=== PATIENT | female | born 1980 | race African-American/Black ===

== ENCOUNTER 2017-01-20 09:03 | Emergency (ER) | payer MEDICAID, OTHER ==
[~2017-01-20] VITALS: Ht 162.6 cm; Wt 80.0 kg
[~2017-01-20 09:03] MED LIST: ALBU1AER INH; GLUCTAB PO; IBUP800T23 PO; LANTUSP SQ; METH500T3 PO; PRAV40TA2 PO; PRED20 PO; Z.0.NO CURRENT MEDS
[2017-01-20 09:08] VITALS: BP 146/86; PULSE 102; RESP 16; TEMP 98.7; O2SAT 98
[2017-01-20] MEDS ORDERED: SODIUM CHLORIDE 0.9% FLUSH 10 ML FLUSH IVF PRN (09:15)
[2017-01-20] MEDS ORDERED: RESP: ALBUTEROL 2.5 MG/3 ML NEB (SCH) INH (09:15)
[2017-01-20] MEDS ORDERED: SODIUM CHLOR 0.9% 1000 ML INJ 1,000 ML IV ONE (09:15)
--- NOTE | 2017-01-20 09:18 | PD ---
HPI Chief Complaint: Respiratory Symptoms Time Seen by Provider: 09:16 Travel History International Travel<30 days: No Contact w/Intl Traveler<30days: No Traveled to known affect area: No History of Present Illness HPI 36-year-old female patient with history of asthma, diabetes, presents to the ER today for several weeks of shortness of breath, drinking more than usual, pitting more than usual, feeling more fatigued, states that her insurance changed last month and she has not been able to get her diabetes and asthma medications for the past month. She states that she could not afford them. She denies any fevers, vomiting, or other symptoms. Her blood sugar read 400 on initial triage today. Modifying Factors: None Associated Signs & Symptoms: Elevated blood sugars, fatigue, polydipsia, polyuria, shortness of breath Risk Factors: Diabetic, asthma PFSH Past Medical History Asthma: Yes Anxiety: Yes Depression: No Cancer: No Cardiovascular Problems: No Diabetes: Yes Diminished Hearing: No Endocrine: No Genitourinary: No Immune Disorder: No Musculoskeletal: Yes Neurologic: No Psychiatric: Yes Reproductive: No Respiratory: Yes ?: Not : 2 Para: 2 Past Surgical History Gynecologic Surgery: Yes (CERCLAGE 2000) Social History Alcohol Use: Yes (OCC) Tobacco Use: Yes (/2 PPD) Substance Use: No Allergies-Medications (Allergen,Severity, Reaction): Coded Allergies: No Known Allergies (Verified Adverse Reaction, Unknown, 01/20/17) Reported Meds & Prescriptions Reported Meds & Active Scripts Active No Active Prescriptions or Reported Medications Review of Systems Except as stated in HPI: all other systems reviewed are Neg Physical Exam Narrative GENERAL: Well-developed Middle age -[place] female patient currently in mild distress. Awake and oriented 3. SKIN: Focused skin assessment warm/dry. HEAD: Atraumatic. Normocephalic. EYES: Pupils equal and round. No scleral icterus. No injection or drainage. ENT: No nasal bleeding or discharge. Mucous membranes pink and moist. NECK: Trachea midline. No JVD. CARDIOVASCULAR: Regular rate and rhythm. No murmur appreciated. RESPIRATORY: No accessory muscle use. Clear to auscultation. Breath sounds equal bilaterally. No wheezes, crackles, or rhonchi. GASTROINTESTINAL: Abdomen soft, non-tender, nondistended. Hepatic and splenic margins not palpable. MUSCULOSKELETAL: No obvious deformities. No clubbing. No cyanosis. No edema. NEUROLOGICAL: Awake and alert. No obvious cranial nerve deficits. Motor grossly within normal limits. Normal speech. PSYCHIATRIC: Appropriate mood and affect; insight and judgment normal. Data Data Last Documented VS Vital Signs Date Time Temp Pulse Resp B/P (MAP) Pulse Ox O2 Delivery O2 Flow Rate FiO2 01/20/17 09:25 20 96 Room Air 01/20/17 09:08 98.7 102 Orders Orders Complete Blood Count With Diff (01/20/17 09:11) Comprehensive Metabolic Panel (01/20/17 09:11) Beta Hydroxybutyrate (Acetone) (01/20/17 09:11) Urinalysis - C+S If Indicated (01/20/17 09:11) Chest, Single Ap (01/20/17 09:11) Ecg Monitoring (01/20/17 09:11) Iv Access Insert/Monitor (01/20/17 09:11) Oximetry (01/20/17 09:11) NPO (01/20/17 09:11) Sodium Chloride 0.9% Flush (Ns Flush) (01/20/17 09:15) Albuterol Neb (Albuterol Neb) (01/20/17 09:15) Ed Urine Pregnancytest Poc (01/20/17 09:11) Sodium Chlor 0.9% 1000 Ml Inj (Ns 1000 M (01/20/17 09:15) Insulin Human Regular Inj (Novolin R Inj (01/20/17 10:15) Blood Glucose (01/20/17 11:10) Albuterol-Ipratropium Neb (Duoneb Neb) (01/20/17 11:15) Ed Discharge Order (01/20/17 11:59) Labs Laboratory Tests Test 01/20/17 09:20 01/20/17 09:40 White Blood Count 17.6 TH/MM3 Red Blood Count 4.69 MIL/MM3 Hemoglobin 14.2 GM/DL Hematocrit 41.0 % Mean Corpuscular Volume 87.5 FL Mean Corpuscular Hemoglobin 30.2 PG Mean Corpuscular Hemoglobin Concent 34.6 % Red Cell Distribution Width 12.5 % Platelet Count 279 TH/MM3 Mean Platelet Volume 9.2 FL Neutrophils (%) (Auto) 73.8 % Lymphocytes (%) (Auto) 18.4 % Monocytes (%) (Auto) 6.3 % Eosinophils (%) (Auto) 0.7 % Basophils (%) (Auto) 0.8 % Neutrophils # (Auto) 13.0 TH/MM3 Lymphocytes # (Auto) 3.2 TH/MM3 Monocytes # (Auto) 1.1 TH/MM3 Eosinophils # (Auto) 0.1 TH/MM3 Basophils # (Auto) 0.1 TH/MM3 CBC Comment DIFF FINAL Differential Comment Blood Urea Nitrogen 9 MG/DL Creatinine 0.97 MG/DL Random Glucose 454 MG/DL Total Protein 7.7 GM/DL Albumin 3.5 GM/DL Calcium Level 8.9 MG/DL Alkaline Phosphatase 234 U/L Aspartate Amino Transf (AST/SGOT) 19 U/L Alanine Aminotransferase (ALT/SGPT) 28 U/L Total Bilirubin 0.3 MG/DL Sodium Level 134 MEQ/L Potassium Level 4.0 MEQ/L Chloride Level 100 MEQ/L Carbon Dioxide Level 23.6 MEQ/L Anion Gap 10 MEQ/L Estimat Glomerular Filtration Rate 78 ML/MIN B-Hydroxybutyrate 0.13 MMOL/L Urine Color LIGHT-YELLOW Urine Turbidity CLEAR Urine pH 5.0 Urine Specific [place] 1.033 Urine Protein NEG mg/dL Urine Glucose (UA) 1000 mg/dL Urine Ketones NEG mg/dL Urine Occult Blood NEG Urine Nitrite NEG Urine Bilirubin NEG Urine Urobilinogen LESS THAN 2.0 MG/DL Urine Leukocyte Esterase NEG Urine WBC LESS THAN 1 /hpf Urine Squamous Epithelial Cells 1 /hpf Microscopic Urinalysis Comment CULT NOT INDICATED MDM Medical Decision Making Medical Screen Exam Complete: Yes Emergency Medical Condition: Yes Medical Record Reviewed: Yes Interpretation(s) Laboratory Tests Test 01/20/17 09:20 01/20/17 09:40 White Blood Count 17.6 TH/MM3 (4.0-11.0) Neutrophils (%) (Auto) 73.8 % (16.0-70.0) Neutrophils # (Auto) 13.0 TH/MM3 (1.8-7.7) Monocytes # (Auto) 1.1 TH/MM3 (0-0.9) Random Glucose 454 MG/DL (74-106) Alkaline Phosphatase 234 U/L (45-117) Sodium Level 134 MEQ/L (136-145) Estimat Glomerular Filtration Rate 78 ML/MIN (>89) Urine Glucose (UA) 1000 mg/dL (NEG) Last 24 hours Impressions Chest X-Ray 01/20/17 0911 Signed Impressions: Service Date/Time: January 09:16 - CONCLUSION: No acute disease. Reji Gentile MD Differential Diagnosis DKA versus hyper glycemia versus other metabolic issues versus dehydration versus sepsis versus pneumonia versus asthma exacerbation versus UTI Narrative Course Lab work is hyperglycemia without signs of acetone elevation, no DKA. She has no UTI. Chest x-ray was unremarkable for acute pulmonary processes. Saturations are normal. She was given albuterol with improvement in symptoms. At this point, it appears that her issue is that she has not able to comply with medication regimen for asthma and diabetes due to her inability to afford Lantus and other diabetes medications. I have talked to her and she states that she would be able to afford metformin which she has been on in the past. My plan would be to give her metformin and sliding scale insulin which be cheaper and we will give her albuterol treatment for her asthma. She will need to follow-up closely with her primary care doctor for further management and she may need tailoring of the medications further. Return for any worsening in hyperglycemia, worsening symptoms, and as needed. The plan has discussed with her and she states understanding. Diagnosis Primary Impression: Hyperglycemia Additional Impression: Asthma exacerbation Med/Other Pt SpecificInfo: Prescription(s) given Scripts Albuterol Sulfate (Proair Hfa) 90 Mcg Hfa.aer.ad 2 PUFF INH QID Y for SHORTNESS OF BREATH, #1 Prov: Kenya Rust MD 01/20/17 Insulin Human Regular Inj (Novolin R Inj) 1,000 Unit/10 Ml Vial 2-10 UNITS SQ TIDAC Y for Blood Sugar Management, #10 ML 0 Refills IMPORTANT TO EAT A MEAL WITHIN 30-60 MINUTES OF DOSING Prov: Kenya Rust MD 01/20/17 Metformin (Metformin) 500 Mg Tab 500 MG PO BIDPC for Blood Sugar Management, #30 TAB 0 Refills Prov: Kenya Rust MD 01/20/17 Disposition: 01 DISCHARGE HOME Condition: Stable Kenya Rust MD Jan 20, 2017 09:18
[2017-01-20 09:25] VITALS: RESP 20; O2SAT 96
[2017-01-20 09:37] LABS: BASOPHIL # 0.1 TH/MM3 (0-0.2); BASOPHIL % 0.8 % (0.0-2.0); EOSINOPHIL # 0.1 TH/MM3 (0-0.4); EOSINOPHIL % 0.7 % (0.0-4.0); HEMO FLAGS DIFF FINAL; LYMPH % 18.4 % (9.0-44.0); LYMPHOCYTE # 3.2 TH/MM3 (1.0-4.8); MEAN CELL VOLUME 87.5 FL (80.0-100.0); MEAN CORPUSCULAR HEMOGLOBIN 30.2 PG (27.0-34.0); MEAN CORPUSCULAR HGB CONC 34.6 % (32.0-36.0); MONO % 6.3 % (0.0-8.0); NEUT % 73.8 % (16.0-70.0); PLATELET COUNT 279 TH/MM3 (150-450); RED BLOOD COUNT 4.69 MIL/MM3 (4.00-5.30); RED CELL DISTRIBUTION WIDTH 12.5 % (11.6-17.2); WHITE BLOOD COUNT 17.6 TH/MM3 (4.0-11.0)
--- NOTE | 2017-01-20 09:50 | RADRPT ---
EXAM DATE/TIME: 01/20/2017 09:16 [facility] COMPARISON: CHEST SINGLE AP, November 26, 2015, 8:57. INDICATIONS : Short of breath for one month MEDICAL HISTORY : asthma SURGICAL HISTORY : None. ENCOUNTER: Initial ACUITY: 1 month PAIN SCORE: 0/10 LOCATION: Bilateral chest FINDINGS: A single view of the chest demonstrates the lungs to be symmetrically aerated without evidence of mas s, infiltrate or effusion. The cardiomediastinal contours are unremarkable. Osseous structures are intact. CONCLUSION: No acute disease. Reji Gentile MD on January 20, 2017 at 9:40 Board Certified Radiologist. This report was verified electronically.
[2017-01-20 09:52] LABS: BLOOD, URINE NEG (NEG); GLUCOSE,URINE 1000 mg/dL (NEG); KETONE, URINE NEG (NEG); NITRITE,URINE NEG (NEG); SQUAMOUS EPITHELIAL CELL URINE 1 /hpf (0-5); URINE COLOR LIGHT-YELLOW (YELLW/STRAW)
[2017-01-20 09:56] LABS: COMMENT (UR) CULT NOT INDICATED; CULTURE IF INDICATED CULT NOT INDICATED
[2017-01-20 09:59] LABS: ALKALINE PHOSPHATASE 234 U/L (45-117); ALT (GPT) 28 U/L (10-53); ANION GAP 10 MEQ/L (5-15); AST (GOT) 19 U/L (15-37); BETA-HYDROXYBUTYRATE 0.13 MMOL/L (0.00-0.39); BICARBONATE 23.6 MEQ/L (21.0-32.0); BLOOD UREA NITROGEN 9 MG/DL (7-18); CHLORIDE 100 MEQ/L (98-107); GLOMERULAR FILTRATION RATE 78 ML/MIN (>89); SODIUM (NA) 134 MEQ/L (136-145); TOTAL BILIRUBIN ADULT 0.3 MG/DL (0.2-1.0)
[2017-01-20] MEDS ORDERED: INSULIN HUMAN REGULAR 1,000 UNITS/10 ML VIAL IV PUSH ONE (10:15)
[2017-01-20] MEDS: RESP: ALBUTEROL 2.5 MG/IPRATROPIUM 0.5 MG NEB (SCH) INH (11:17)
[2017-01-20] MEDS ORDERED: ALBUAER3 INH (12:04)
[2017-01-20] MEDS ORDERED: NOVORP2 SQ (12:04)
[2017-01-20] MEDS ORDERED: METF500T PO (12:04)
[2017-01-20 12:31] VITALS: BP 132/82; PULSE 92; RESP 16; O2SAT 98
== END 2017-01-20 12:45 | disposition home or self-care (01) ==
LOC: NEPE 09:03
DX: J45.901 Unspecified asthma with (acute) exacerbation (principal); E11.65 Type 2 diabetes mellitus with hyperglycemia; F41.9 Anxiety disorder, unspecified
CPT/HCPCS: 71010; 80053; 81001; 82010; 84703; 85025; 94664; 96361; 96374; 99284; J1815; J7030